=== PATIENT | female | born 2000 | race African-American/Black ===

== ENCOUNTER 2024-07-14 09:26 | Inpatient (IN) | payer BC, MEDICAID ==
[~2024-07-14] VITALS: Ht 162.6 cm; Wt 53.0 kg
[2024-07-14 10:07] LABS: Basophils # (auto) 0 10 ^3/uL (0-0.2); Basophils % (auto) 0.1 % (0.0-2.0); Eosinophils # (auto) 0.1 10 ^3/uL (0-0.8); Eosinophils % (auto) 0.5 % (0.0-7.0); Hematocrit 44.4 % (36.0-46.0); Hemoglobin 14.2 g/dL (12.2-16.2); Lymphocytes # (auto) 1.8 10 ^3/uL (0.4-5.4); Lymphocytes % (auto) 12.1 % (10.0-50.0); Mean Corpuscular Hemoglobin 29.5 pg (28.0-32.0); Mean Corpuscular Volume 92.1 fL (80.0-100.0); Monocytes # (auto) 0.9 10 ^3/uL (0-1.3); Monocytes % (auto) 6.3 % (0.0-12.0); Neutrophils # (auto) 12.1 10 ^3/uL (1.6-8.6); Platelet Count (auto) 237 10^3/uL (140-450); Red Blood Cells 4.82 10^6/uL (4.0-5.20); Red Cell Distribution Width 13.6 % (11.8-14.3)
[2024-07-14 10:30] LABS: Potassium 4.4 mmol/L (3.5-5.1); Sodium 138 mmol/L (136-145)
[2024-07-14 10:31] LABS: Anion Gap 7 (5-15); Calcium 9.8 mg/dL (8.7-10.4); Carbon Dioxide 24 mmol/L (20-31)
[2024-07-14 10:36] LABS: BUN/Creatinine Ratio 8.7 (10.0-20.0); Glucose 97 mg/dL (74-106)
[2024-07-14 10:39] LABS: Blood Urea Nitrogen 8 mg/dL (9-23); Chloride 107 mmol/L (98-107)
[2024-07-14 11:13] LABS: Urine Bacteria FEW /hpf (None Seen); Urine Blood 3+ /uL (Negative); Urine Clarity Clear (Clear); Urine Color Light-Yellow (Yellow); Urine Protein, UAD Negative (Negative); Urine Squamous Epithelial Cell MOD /hpf (<5); Urine Urobilinogen Normal (Negative); Urine WBC 2 /hpf (0 - 5)
[2024-07-14 11:29] LABS: Lipase 26 U/L (12-53)
[2024-07-14 12:50] VITALS: PULSE 115; RESP 16; O2SAT 99
[2024-07-14] MEDS: KETOROLAC TROMETH 30 MG/ML 1ML VIAL IM ONE (12:54)
[2024-07-14] MEDS: ONDANSETRON HCL 4 MG/2 ML VIAL IM ONE (12:54)
[2024-07-14] MEDS: cefTRIAXone W LIDOCAINE 1 GM IM IM ONE (12:57)
--- NOTE | 2024-07-14 13:01 | ED.PDOC ---
GI ASSESSMENT HPI Comments 23 y.o female presents to the ED for a chief complaint of right sided abdominal pain associated with right back/flank pain associated with dizziness and nausea that started one week ago. Patient describes pain as sharp, constant, and worse today with no modifying factors. Patient reports history of kidney stones with similar pain. She denies any fever, chills, dysuria, diarrhea, constipation. Patient is currently on her menstrual cycle. 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 History Family History Family History: Reviewed,noncontributory to illness Social History Smoker: Non-Smoker Alcohol: Denies ETOH Use Drugs: Denies Drug Use Lives In: Home Constitutional: denies: chills, diaphoresis, fatigue, fever, malaise, sweats, weakness, others EENTM: denies: blurred vision, double vision, ear bleeding, ear discharge, ear drainage, ear pain, ear ringing, eye pain, eye redness, hearing loss, mouth pain, mouth swelling, nasal discharge, nose bleeding, nose congestion, nose pain, photophobia, tearing, throat pain, throat swelling, voice changes, others Respiratory: denies: cough, hemoptysis, orthopnea, SOB at rest, shortness of breath, SOB with excertion, stridor, wheezing, others Cardiovascular: denies: chest pain, dizzy spells, diaphoresis, Dyspnea on exertion, edema, irregular heart beat, left arm pain, lightheadedness, palpitations, PND, syncope, others Gastrointestinal: reports: abdominal pain, nausea, vomiting; denies: abdomen distended, blood streaked bowels, constipated, diarrhea, dysphagia, difficulty swallowing, hematemesis, melena, poor appetite, poor fluid intake, rectal bleeding, rectal pain, others Genitourinary: reports: flank pain; denies: abnormal vagina bleeding, burning, dyspareunia, dysuria, frequency, hematuria, incontinence, pain, , vagina discharge, urgency, others Neurological: denies: dizziness, fainting, headache, left sided numbness, left sided weakness, numbness, paresthesia, pre-existing deficit, right sided numbness, right sided weakness, seizure, speech problems, tingling, tremors, weakness, others Musculoskeletal: reports: back pain; denies: gout, joint pain, joint swelling, muscle pain, muscle stiffness, neck pain, others Integumetry: denies: bruises, change in color, change in hair/nails, dryness, laceration, lesions, lumps, rash, wounds, others Allergic/Immunocompromised: denies: Difficulty Healing, Frequent Infections, Hives, Itching, others Hematologic/Lymphatic: denies: anemia, blood clots, easy bleeding, easy bruising, swollen glands, others Endocrine: denies: excessive hunger, excessive sweating, excessive thirst, excessive urination, flushing, intolerance to cold, intolerance to heat, unexplained weight gain, unexplained weight loss, others Psychiatric: denies: anxiety, bipolar disorder, depression, hopeless, panic disorder, schizophrenia, sleepless, suicidal, others All Other Systems: Reviewed and Negative Physical Exam General Appearance: Moderate Distress HEENT: Normal ENT Inspection, Pharynx Normal, TMs Normal Neck: Full Range of Motion, Non-Tender, Normal, Normal Inspection Respiratory: Chest Non-Tender, Lungs Clear, No Accessory Muscle Use, No Respiratory Distress, Normal Breath Sounds Cardiovascular: No Edema, No JVD, No Murmur, No Gallop, Normal Peripheral Pulses, Regular Rate/Rhythm Breast Exam: Deferred Gastrointestinal: RLQ, RUQ, Tenderness Genitalia: Deferred Pelvic: Deferred Rectal: Deferred Extremities: No calf tenderness, Normal capillary refill, Normal inspection, Normal range of motion, Non-tender, No pedal edema Musculoskeletal : Apperance: Normal Neurologic: Alert, shingler II-XII nml as Tested, No Motor Deficits, Normal Affect, Normal Mood, No Sensory Deficits Cerebellar Function: Normal Reflexes: Normal Skin: Dry, Normal Color, Warm Lymphatic: No Adenopathy Was a procedure done? Was a procedure done?: No GI differential Dx Differential Diagnosis: Esophagitis, Gastroenteritis, Inflammatory BD, UTI, Dehydration, Viral, Kidney Stone X-Ray, Labs, Meds, VS Vital Signs Date Time Temp Pulse Resp B/P (MAP) Pulse Ox O2 Delivery O2 Flow Rate FiO2 07/14/24 12:50 115 16 127/109 (115) 99 07/14/24 12:50 115 16 99 Room Air* 0 21 07/14/24 10:34 98.5 88 98 112/70 (84) 98 98.5 07/14/24 09:42 98.7 81 18 106/55 (72) 96 Lab Test 07/14/24 09:53 07/14/24 08:30 Range/Units White Blood Count 15.0 H 4.4-10.8 10^3/uL Red Blood Count 4.82 4.0-5.20 10^6/uL Hemoglobin 14.2 12.2-16.2 g/dL Hematocrit 44.4 36.0-46.0 % Mean Corpuscular Volume 92.1 80.0-100.0 fL Mean Corpuscular Hemoglobin 29.5 28.0-32.0 pg Mean Corpuscular Hemoglobin Concent 32.0 32.0-36.0 g/dL Red Cell Distribution Width 13.6 11.8-14.3 % Platelet Count 237 140-450 10^3/uL Mean Platelet Volume 8.7 6.9-10.8 fL Neutrophils (%) (Auto) 81.0 H 37.0-80.0 % Lymphocytes (%) (Auto) 12.1 10.0-50.0 % Monocytes (%) (Auto) 6.3 0.0-12.0 % Eosinophils (%) (Auto) 0.5 0.0-7.0 % Basophils (%) (Auto) 0.1 0.0-2.0 % Neutrophils # (Auto) 12.1 H 1.6-8.6 10 ^3/uL Lymphocytes # (Auto) 1.8 0.4-5.4 10 ^3/uL Monocytes # (Auto) 0.9 0-1.3 10 ^3/uL Eosinophils # (Auto) 0.1 0-0.8 10 ^3/uL Basophils # (Auto) 0 0-0.2 10 ^3/uL Nucleated Red Blood Cells 0.0 % Sodium Level 138 136-145 mmol/L Potassium Level 4.4 3.5-5.1 mmol/L Chloride Level 107 98-107 mmol/L Carbon Dioxide Level 24 20-31 mmol/L Anion Gap 7 5-15 Blood Urea Nitrogen 8 L 9-23 mg/dL Creatinine 0.92 0.550-1.02 mg/dL Glomerular Filtration Rate Calc 90 >90 mL/min BUN/Creatinine Ratio 8.7 L 10.0-20.0 Serum Glucose 97 74-106 mg/dL Calcium Level 9.8 8.7-10.4 mg/dL Lipase 26 12-53 U/L Urine Color Light-yellow Yellow Urine Clarity Clear Clear Urine pH 6.0 5.0-9.0 Urine Specific [place] 1.020 1.001-1.035 Urine Protein Negative Negative Urine Ketones Negative Negative Urine Blood 3+ H Negative /uL Urine Nitrite Negative Negative Urine Bilirubin Negative Negative Urine Urobilinogen Normal Negative mg/dL Urine Leukocyte Esterase Negative Negative /uL Urine RBC 6 0 - 4 /hpf Urine WBC 2 0 - 5 /hpf Urine Squamous Epithelial Cells Mod <5 /hpf Urine Bacteria Few H None Seen /hpf Urine Glucose Normal Normal mg/dL Urine Test Negative Negative Current Medications Medications (Trade) Dose Ordered Sig/Pearl Route Start Time Stop Time Status Last Admin Ondansetron HCl (Zofran) 4 mg ONCE ONCE IM 07/14/24 12:45 07/14/24 12:47 DC 07/14/24 12:54 Ketorolac Tromethamine (Toradol Injection) 30 mg ONCE ONCE IM 07/14/24 12:45 07/14/24 12:47 DC 07/14/24 12:54 Ceftriaxone Sodium (Rocephin W Lidocaine IM) 1 gm ONCE ONCE IM 07/14/24 12:45 07/14/24 12:47 DC 07/14/24 12:57 X-Ray, Labs, Meds, VS Comment CT abdomen and pelvis: IMPRESSION: 1. Diffuse abnormality of the bowel. Small bowel is distended with fecalization suggesting chronic obstruction. Diffuse wall thickening of the colon. Consider infectious and inflammatory processes. Clinical correlation and continued follow-up is recommended. Consider further evaluation with intravenous and oral contrast. 2. Contracted gallbladder with sludge or stones. Atrophic or fatty infiltrated pancreas. Punctate nonobstructive left renal calculus. Patient will be admitted for possible UTI due to kidney stone versus colonic obstruction of the small bowel with possible infection Patient will be admitted for a retractable abdominal pain Recommend GI consult Patient be started on Flagyl Time of 1ST Reevaluation: 13:00 Reevaluation 1ST: Unchanged Consultation: Other Patient Education/Counseling: Diagnosis, Treatment, Prognosis Family Education/Counseling: No Family Present Departure 1 Departure Time of Disposition: 13:36 Impression: Primary Impression: Urinary tract infection Qualified Codes: N30.01 - Acute cystitis with hematuria Additional Impressions: Intractable abdominal pain Chronic pseudo-obstruction of small intestine Disposition: ADMITTED INPATIENT Condition: Stable Discharged With: Self Critical Care Note Critical Care Time?: No Stability Stability form required: No I personally scribed for RYAN GORE [facility] on 07/14/24 at 13:01. Electronically submitted by Chiara Demarco ([facility]). RYAN GORE Jul 14, 2024 13:01
--- NOTE | 2024-07-14 13:26 | DVH ---
Exam: CT CT AB PEL WO CON-NO ORAL OR IV History: ABD PAIN Comparison Study: None Technique: Multidetector spiral CT of the abdomen and pelvis was performed from lung bases to pubic symphysis. Imaging was performed without IV contrast. Axial, coronal and sagittal multiplanar reform ats were obtained from the axial data set by the technologist. Radiation dose : Abdomen/Pelvis: CTDIvol 5 mGy, DLP 269 mGy*cm. Findings: Evaluation of solid organs is limited due to lack of intravenous contrast use. Lung Bases: No acute or significant lung base finding. Normal heart size. No pleural or pericardial effusion. Liver: The liver is normal in size. No focal lesions. Gallbladder and biliary Tree: Contracted with radiodense material, either sludge or stones. Spleen: Unremarkable Pancreas: Atrophic or fatty infiltrated. Adrenal Glands: Unremarkable Kidneys: Punctate left renal calculus. No hydronephrosis. Bladder: Grossly unremarkable for degree of distention. Bowel: The stomach is grossly normal in appearance. There is dilation of small bowel loops with fecal ization. There is diffuse wall thickening of the colon. The appendix is not visualized; however, no secondary findings of acute appendicitis identified. Ascites: Small amount of free fluid in the pelvis is likely physiologic. Lymphadenopathy: No mesenteric, retroperitoneal or periportal lymphadenopathy. Abdominal wall and Mesentery: Unremarkable. Vasculature: The visualized abdominal aorta is normal in size and caliber. Evaluation of abdominal a nd pelvic vessels is limited due to lack of intravenous contrast. Pelvic Organs: Unremarkable Musculoskeletal: No aggressive focal bony lesions, acute fractures or dislocation. IMPRESSION: 1. Diffuse abnormality of the bowel. Small bowel is distended with fecalization suggesting chronic ob struction. Diffuse wall thickening of the colon. Consider infectious and inflammatory processes. Cl inical correlation and continued follow-up is recommended. Consider further evaluation with intraven ous and oral contrast. 2. Contracted gallbladder with sludge or stones. Atrophic or fatty infiltrated pancreas. Punctate no nobstructive left renal calculus. Radiation optimization: All CT scans at this facility use at least one of these dose optimization tana hniques: Automated exposure control mA and/or kV adjustment per patient size (includes targeted exams where dose is matched to clinical indication) or iterative reconstruction. HS:Y
[2024-07-14] MEDS: metroNIDAZOLE 500MG/100ML 100 ML IV ONE (14:54)
[2024-07-14 17:16] VITALS: BP 97/62; PULSE 66; RESP 16; TEMP 98.4; O2SAT 96
[2024-07-14] MEDS ORDERED: cefTRIAXone 1GM/50ML D5W 50 ML IV ONE (23:45)
--- NOTE | 2024-07-14 23:51 | DVH ---
EXAM: XY CHEST PORTABLE CLINICAL HISTORY: leukocytosis TECHNIQUE: Single AP view of the chest WID: COMPARISON: None FINDINGS: Lines and tubes: None Chest: The heart size and pulmonary vasculature is within normal limits. No pleural effusion, pneumothorax, or consolidation. The osseous structures are grossly intact. IMPRESSION: No acute cardiopulmonary abnormality.
[2024-07-15] MEDS: LACTULOSE 20Gm/30ML SOLN PO ONE (00:15)
[2024-07-15] MEDS: traMADol HCL 50 MG TAB PO ONE (00:15)
[2024-07-15] MEDS: ONDANSETRON HCL 4 MG/2 ML VIAL IV PRN (00:19)
[2024-07-15] MEDS: BISACODYL 5 MG EC TAB PO SCH (00:23)
[2024-07-15] MEDS: SODIUM CHLORIDE 0.9% 1,000 ML IV ONE (00:24)
[2024-07-15] MEDS: metroNIDAZOLE 500MG/100ML 100 ML IV ONE (00:24)
--- NOTE | 2024-07-15 00:25 | DVH ---
INDICATION: RUQ tenderness TECHNIQUE: Multiple real-time sonographic images were obtained of the right upper quadrant. COMPARISON: None FINDINGS: The liver demonstrates homogeneous echotexture without focal mass lesions. The liver measu res 16.1 cm. There is no intrahepatic or extrahepatic ductal dilatation. The common duct measures 0.4 cm. No gallstones. Small amount of sludge is present. The gallbladder wall measures 0.2 cm and is withi n normal limits. The right kidney measures 9.2 cm. The right kidney is normal in contour, size, and shape. The echog enicity is normal. There is no hydronephrosis. The pancreas is not well visualized due to overlying bowel gas. IMPRESSION: 1. Unremarkable right upper quadrant sonogram.
--- NOTE | 2024-07-15 00:44 | DVHHPRES ---
History of Present Illness Resident Creating Document: ZACK DELCID RESIDENT History of Present Illness Patient is a 23-year-old female with past medical history of cystic fibrosis, GERD, nephrolithiasis, who came in due to intractable abdominal pain. According to the patient, last night on 07/14/2024 she was watching TV when she noticed an abrupt onset of abdominal pain prior to which she had 1 slice of pizza. Patient describes the pain as sharp, 9/10 in intensity, intermittent in nature without any exacerbating or relieving factors. Pain is localized to midepigastric-right subcostal area. Pain was accompanied with nausea and 2 episodes of vomit, vomitus containing food particles. Per patient, she experienced similar abdominal pain in the past when she was diagnosed with kidney stones. Review of systems, patient continues to complain of nausea, abdominal pain. Home medication: Trikafta, Creon ([id number]), omeprazole, vitamin- D Last menstrual period: 07/10/2024 Past hospitalization: Denies Not sexually active Past Medical History Cystic fibrosis, GERD, nephrolithiasis Past Surgical History Nasal polyp removal, abdominal scar removal/reduction surgery Smoke: No ALCOHOL: rare Drugs: None Lives: with Family Review of Systems Constitutional: No: Fever, Chills, Sweats, Weakness, Malaise, Other Eyes: No: Pain, Vision change, Conjunctivae inflammation, Eyelid inflammation, Other, Redness ENT: No: Ear pain, Ear discharge, Nose pain, Nose discharge, Nose congestion, Mouth pain, Mouth swelling, Throat pain, Throat swelling, Other Respiratory: No: Cough, Dry, Shortness of breath, SOB with excertion, Wheezing, Hemoptysis, Pleuritic Pain, Sputum, Wheezing, Other Cardiovascular: No: Chest Pain, Palpitations, Orthopnea, Paroxysmal Noc. Dyspnea, Edema, Lt Headedness, Other Gastrointestinal: Nausea, Vomiting, Abdominal Pain, Constipation; No: Diarrhea, Melena, Hematochezia, Other Genitourinary: No Dysuria, No Frequency, No Incontinence, No Hematuria, No Retention, No Other Musculoskeletal: No: other, neck pain, shoulder pain, arm pain, back pain, hand pain, leg pain, foot pain Skin: No: Rash, Lesions, Jaundice, Bruising, Other Neurological: No: Weakness, Numbness, Incoordination, Change in speech, Confusion, Seizures, Other Allergies: Coded Allergies: NO KNOWN ALLERGIES (Unverified , 07/14/24) Medications Current Medications Medications Dose Ordered Sig/Pearl Route Start Time Stop Time Status Last Admin Dose Admin Ondansetron HCl 4 mg Q8HPRN PRN IV 07/14/24 23:30 07/15/24 00:19 4 MG Bisacodyl 10 mg BID PO 07/14/24 23:30 07/15/24 00:23 10 MG Ceftriaxone Sodium 50 ml @ 100 mls/hr DAILY@1300 IV 07/15/24 13:00 Metronidazole 100 ml @ 100 mls/hr Q8HR IV 07/15/24 06:00 Exam Vital Signs Vital Signs Date Time Temp Pulse Resp B/P (MAP) Pulse Ox O2 Delivery O2 Flow Rate FiO2 07/14/24 17:16 98.4 66 16 97/62 (74) 96 98.4 07/14/24 12:50 Room Air* 0 21 General Appearance: Alert, Oriented X3, Cooperative, mild distress HEENT: Atraumatic, PERRLA, EOMI, Mucous membr. moist/pink Respiratory: Clear to auscultation, Normal air movement Cardiovascular: Regular rate, Normal S1, Normal S2 Abdominal: Normal bowel sounds, Other (Right upper quadrant tenderness to palpation and guarding. Right CVA tenderness to palpation.) Extremities: No clubbing, No cyanosis, Normal pulses Skin: No rashes, No breakdown, No significant lesion Psych/Mental Status: Mental status NL, Mood NL Labs/Xrays Labs Test 07/14/24 23:50 07/14/24 09:53 07/14/24 08:30 Range/Units Thyroid Stimulating Hormone (TSH) 1.52 0.55-4.78 uIU/mL White Blood Count 15.0 H 4.4-10.8 10^3/uL Red Blood Count 4.82 4.0-5.20 10^6/uL Hemoglobin 14.2 12.2-16.2 g/dL Hematocrit 44.4 36.0-46.0 % Mean Corpuscular Volume 92.1 80.0-100.0 fL Mean Corpuscular Hemoglobin 29.5 28.0-32.0 pg Mean Corpuscular Hemoglobin Concent 32.0 32.0-36.0 g/dL Red Cell Distribution Width 13.6 11.8-14.3 % Platelet Count 237 140-450 10^3/uL Mean Platelet Volume 8.7 6.9-10.8 fL Neutrophils (%) (Auto) 81.0 H 37.0-80.0 % Lymphocytes (%) (Auto) 12.1 10.0-50.0 % Monocytes (%) (Auto) 6.3 0.0-12.0 % Eosinophils (%) (Auto) 0.5 0.0-7.0 % Basophils (%) (Auto) 0.1 0.0-2.0 % Neutrophils # (Auto) 12.1 H 1.6-8.6 10 ^3/uL Lymphocytes # (Auto) 1.8 0.4-5.4 10 ^3/uL Monocytes # (Auto) 0.9 0-1.3 10 ^3/uL Eosinophils # (Auto) 0.1 0-0.8 10 ^3/uL Basophils # (Auto) 0 0-0.2 10 ^3/uL Nucleated Red Blood Cells 0.0 % Sodium Level 138 136-145 mmol/L Potassium Level 4.4 3.5-5.1 mmol/L Chloride Level 107 98-107 mmol/L Carbon Dioxide Level 24 20-31 mmol/L Anion Gap 7 5-15 Blood Urea Nitrogen 8 L 9-23 mg/dL Creatinine 0.92 0.550-1.02 mg/dL Glomerular Filtration Rate Calc 90 >90 mL/min BUN/Creatinine Ratio 8.7 L 10.0-20.0 Serum Glucose 97 74-106 mg/dL Calcium Level 9.8 8.7-10.4 mg/dL Lipase 26 12-53 U/L Urine Color Light-yellow Yellow Urine Clarity Clear Clear Urine pH 6.0 5.0-9.0 Urine Specific [place] 1.020 1.001-1.035 Urine Protein Negative Negative Urine Ketones Negative Negative Urine Blood 3+ H Negative /uL Urine Nitrite Negative Negative Urine Bilirubin Negative Negative Urine Urobilinogen Normal Negative mg/dL Urine Leukocyte Esterase Negative Negative /uL Urine RBC 6 0 - 4 /hpf Urine WBC 2 0 - 5 /hpf Urine Squamous Epithelial Cells Mod <5 /hpf Urine Bacteria Few H None Seen /hpf Urine Glucose Normal Normal mg/dL Urine Test Negative Negative Assessment/Plan Assessment/Plan Acute intractable abdominal pain Ruled out acute cholecystitis Acute constipation likely; rule out acute gastritis - CT abdomen pelvis: Diffuse abnormality of the bowel. Small bowel is diste nded with fecalization suggesting chronic obstruction. Diffuse wall thickening of the colon. Consider infectious and inflammatory processes. Contracted gallbladder with sludge or stones. Atrophic or fatty infiltrated pancreas. Punctate nonobstructive left renal calculus. - abdominal ultrasound: Unremarkable right upper quadrant sonogram - IV ceftriaxone, IV metronidazole - IV NS at 100 cc/hour - Dulcolax 10 mg p.o. b.i.d. - lactulose 60 mL p.o. once - IV ondansetron 4 mg q.8 hour as needed for nausea and vomiting - tramadol p.o. 50 mg once History of cystic fibrosis - monitor GERD - IV Protonix 40 mg once Goals of care: Full code, discussed for >16 minutes on 07/15/24 Plan discussed with patient Plan discussed with Dr. Arthur Plan discussed with: Patient, Other (RN) My Orders Orders - ZACK DELCID RESIDENT Procedure Category Date Status Time Admit ADMIT 07/14/24 Transmitted 23:23 Notify Md Of Changes GILSON 07/14/24 In Process From Base 23:23 Abdomen Limited US 07/14/24 Resulted 23:23 Chest Portable XY 07/14/24 Resulted 23:23 Rapid Influenza A&B LAB 07/14/24 Logged 23:23 Covid19 Antigen [facility] 07/14/24 Logged Ondansetron Hcl PHA 07/14/24 In Process (Zofran) 23:30 Bisacodyl Ec Tablet PHA 07/14/24 In Process (Dulcolax Ec Tablet) 23:30 Ceftriaxone 1gm/50ml PHA 07/15/24 In Process D5w (Rocephin) 13:00 Metronidazole PHA 07/15/24 In Process 500mg/100ml (Flagyl 06:00 Hepatic Panel LAB 07/14/24 In Process 23:25 Drug Screen LAB 07/14/24 Logged 23:25 Blood Culture LALITO 07/14/24 In Process 23:25 Mrsa Screen LALITO 07/14/24 Logged 23:25 Alejandra; Direct LAB 07/14/24 In Process 23:29 Metronidazole PHA 07/14/24 In Process 500mg/100ml (Flagyl 23:45 Sodium Chloride 0.9% PHA 07/14/24 In Process 23:45 Date of Service: Jul 14, 2024 Billing Provider: LUIS ANGEL ARTHUR MD Common Visit Codes: [id number] INP/OBS CARE (HIGH) ZACK DELCID RESIDENT Jul 15, 2024 00:44 LUIS ANGEL ARTHUR MD Jul 15, 2024 09:41
[2024-07-15 01:47] LABS: Albumin 4.8 g/dL (3.2-4.8); Bilirubin, Direct 0.2 mg/dL (<0.3); Bilirubin, Total 0.6 mg/dL (0.2-1.0)
[2024-07-15] MEDS: PANTOPRAZOLE 40 MG/10 ML VIAL INJ IV ONE (02:05)
[2024-07-15] MEDS: metroNIDAZOLE 500MG/100ML 100 ML IV SCH (05:42)
[2024-07-15 07:36] LABS: COVID19 ANTIGEN SOFIA FIA NEGATIVE (NEGATIVE)
[2024-07-15 07:42] LABS: Rapid Influenza A Positive (Negative); Rapid Influenza B Positive (Negative)
[2024-07-15 07:54] VITALS: PULSE 79; RESP 18; O2SAT 98
[2024-07-15 08:07] LABS: Alanine Aminotransferase 11 U/L (7-40); Albumin 4.1 g/dL (3.2-4.8); Alkaline Phosphatase 49 U/L (46-116); Anion Gap 7 (5-15); BUN/Creatinine Ratio 10.1 (10.0-20.0); Blood Urea Nitrogen 10 mg/dL (9-23); Calcium 9.4 mg/dL (8.7-10.4); Carbon Dioxide 23 mmol/L (20-31); Potassium 4.5 mmol/L (3.5-5.1); Sodium 140 mmol/L (136-145)
[2024-07-15 08:08] LABS: Bilirubin, Total 0.6 mg/dL (0.2-1.0); Total Protein 6.8 g/dL (5.7-8.2)
[2024-07-15 08:09] LABS: Aspartate Aminotransferase 12 U/L (13-40); Basophils # (auto) 0 10 ^3/uL (0-0.2); Basophils % (auto) 0.2 % (0.0-2.0); Chloride 110 mmol/L (98-107); Eosinophils # (auto) 0 10 ^3/uL (0-0.8); Eosinophils % (auto) 0.4 % (0.0-7.0); Glucose 106 mg/dL (74-106); Hematocrit 39.8 % (36.0-46.0); Hemoglobin 13.2 g/dL (12.2-16.2); Lymphocytes # (auto) 1.8 10 ^3/uL (0.4-5.4); Lymphocytes % (auto) 15.4 % (10.0-50.0); Mean Corpuscular Hemoglobin 30.3 pg (28.0-32.0); Mean Corpuscular Hgb Conc. 33.2 g/dL (32.0-36.0); Mean Corpuscular Volume 91.1 fL (80.0-100.0); Monocytes % (auto) 8.8 % (0.0-12.0); Neutrophils # (auto) 8.6 10 ^3/uL (1.6-8.6); Neutrophils % (auto) 75.2 % (37.0-80.0); Platelet Count (auto) 221 10^3/uL (140-450); Red Blood Cells 4.37 10^6/uL (4.0-5.20); Red Cell Distribution Width 13.4 % (11.8-14.3); White Blood Cell 11.4 10^3/uL (4.4-10.8)
[2024-07-15] MEDS: POLYETHYLENE GLYCOL 17 GM PWDR PO ONE (08:53)
[2024-07-15] MEDS: cefTRIAXone 1GM/50ML D5W 50 ML IV SCH (13:08)
--- NOTE | 2024-07-15 13:14 | DVHPNRES ---
Progress Note Date Seen: Jul 15, 2024 Resident Creating Document: CINDY FOURNIER RESIDENT Has the PT tested + for MRSA If YES, has PT been informed?: No Medical Necessity Reason Pt with a Central, PICC or Fol: No Subjective Review of Systems Patient is a 23-year-old female with past medical history of cystic fibrosis, GERD, nephrolithiasis, who came in due to intractable abdominal pain. According to the patient, last night on 07/14/2024 she was watching TV when she noticed an abrupt onset of abdominal pain prior to which she had 1 slice of pizza. Patient describes the pain as sharp, 9/10 in intensity, intermittent in nature without any exacerbating or relieving factors. Pain is localized to midepigastric-right subcostal area. Pain was accompanied with nausea and 2 episodes of vomit, vomitus containing food particles. Per patient, she experienced similar abdominal pain in the past when she was diagnosed with kidney stones. Review of systems, patient continues to complain of nausea, abdominal pain. Home medication: Trikafta, Creon ([id number]), omeprazole, vitamin- D Last menstrual period: 07/10/2024 Past hospitalization: Denies Not sexually active Past Medical History Cystic fibrosis, GERD, nephrolithiasis Past Surgical History Nasal polyp removal, abdominal scar removal/reduction surgery Smoke: No ALCOHOL: rare Drugs: None Lives: with Family Objective vital signs Vital Sign Date Time Temp Pulse Resp B/P (MAP) Pulse Ox O2 Delivery O2 Flow Rate FiO2 07/15/24 12:11 97.8 64 17 109/72 (84) 96 97.8 07/15/24 07:54 Room Air* 0 21 Total Intake and Output 07/14/24 07/14/24 07/15/24 15:00 23:00 07:00 Intake Total 100 ml Balance 100 ml medications Current Medications Medications Dose Ordered Sig/Pearl Route Start Time Stop Time Status Last Admin Dose Admin Ondansetron HCl 4 mg Q8HPRN PRN IV 07/14/24 23:30 07/15/24 00:19 4 MG Bisacodyl 10 mg BID PO 07/14/24 23:30 07/15/24 10:34 10 MG Ceftriaxone Sodium 50 ml @ 100 mls/hr DAILY@1300 IV 07/15/24 13:00 07/15/24 13:08 100 MLS/HR Metronidazole 100 ml @ 100 mls/hr Q8HR IV 07/15/24 06:00 07/15/24 05:42 100 MLS/HR Pantoprazole Sodium 40 mg DAILY IV 07/16/24 10:00 Examination General Appearance: Alert, Oriented X3, Cooperative, mild distress HEENT: Atraumatic, PERRLA, EOMI, Mucous membr. moist/pink Respiratory: Clear to auscultation, Normal air movement Cardiovascular: Regular rate, Normal S1, Normal S2 Abdominal: Right upper and lower quadrant tenderness to palpation and guarding. Extremities: No clubbing, No cyanosis, Normal pulses Skin: No rashes, No breakdown, No significant lesion Psych/Mental Status: Mental status NL, Mood NL laboratory and microbiology Laboratory Tests 07/15/24 07:27 Test 07/15/24 07:27 Range/Units Serum Glucose 106 74-106 mg/dL Problem List/Assessment/Plan Problem List/Assessment/Plan #Influenza positive #Acute intractable abdominal pain #Chronic pancreatitis? #Constipation #Acute gastritis #History of cystic fibrosis #GERD - CT abdomen pelvis: Diffuse abnormality of the bowel. Small bowel is distended with fecalization suggesting chronic obstruction. Diffuse wall thickening of the colon. Consider infectious and inflammatory processes. Contracted gallbladder with sludge or stones. Atrophic or fatty infiltrated pancreas. Punctate nonobstructive left renal calculus. - abdominal ultrasound: Unremarkable right upper quadrant sonogram - IV ceftriaxone, IV metronidazole - IV NS at 75 cc/hour - Dulcolax 10 mg p.o. b.i.d. -Miralax daily -oseltamivir - IV ondansetron 4 mg q.8 hour as needed for nausea and vomiting - IV Protonix 40 mg once We will keep the patient in the hospital to evaluate abdominal pain and advance diet due to nausea and vomit Goals of care: Full code, discussed for >16 minutes on 07/15/24 Plan discussed with patient and mother Plan discussed with Dr. Mendez Plan discussed with: Patient, Other (rn) Date of Service: Jul 15, 2024 Billing Provider: HUY MENDEZ MD Common Visit Codes: [id number] INP/OBS CARE(HIGH) CINDY FOURNIER RESIDENT Jul 15, 2024 13:14 HUY MENDEZ MD Jul 15, 2024 16:17
[2024-07-15] MEDS: SODIUM CHLORIDE 0.9% 1,000 ML IV SCH (13:15)
[2024-07-15 17:28] VITALS: BP 101/68; PULSE 60; RESP 17; TEMP 98.9; O2SAT 100
[2024-07-16] MEDS ORDERED: OSELTAMIVIR 75 MG CAP PO SCH (10:00)
[2024-07-16] MEDS ORDERED: PANTOPRAZOLE 40 MG/10 ML VIAL INJ IV SCH (10:00)
--- NOTE | 2024-07-17 06:43 | DVHDSRES ---
Discharge Summary Date of Admission Resident Creating Document: CINDY FOURNIER RESIDENT Jul 14, 2024 at 23:23 Date of Discharge: Jul 15, 2024 Admitting Diagnosis abdominal pain Labs/Diagnostic Data: Laboratory Results Test 07/15/24 07:27 07/15/24 06:50 07/14/24 23:50 07/14/24 09:53 White Blood Count 11.4 10^3/uL (4.4-10.8) Red Blood Count 4.37 10^6/uL (4.0-5.20) Hemoglobin 13.2 g/dL (12.2-16.2) Hematocrit 39.8 % (36.0-46.0) Mean Corpuscular Volume 91.1 fL (80.0-100.0) Mean Corpuscular Hemoglobin 30.3 pg (28.0-32.0) Mean Corpuscular Hemoglobin Concent 33.2 g/dL (32.0-36.0) Red Cell Distribution Width 13.4 % (11.8-14.3) Platelet Count 221 10^3/uL (140-450) Mean Platelet Volume 9.1 fL (6.9-10.8) Neutrophils (%) (Auto) 75.2 % (37.0-80.0) Lymphocytes (%) (Auto) 15.4 % (10.0-50.0) Monocytes (%) (Auto) 8.8 % (0.0-12.0) Eosinophils (%) (Auto) 0.4 % (0.0-7.0) Basophils (%) (Auto) 0.2 % (0.0-2.0) Neutrophils # (Auto) 8.6 10 ^3/uL (1.6-8.6) Lymphocytes # (Auto) 1.8 10 ^3/uL (0.4-5.4) Monocytes # (Auto) 1.0 10 ^3/uL (0-1.3) Eosinophils # (Auto) 0 10 ^3/uL (0-0.8) Basophils # (Auto) 0 10 ^3/uL (0-0.2) Nucleated Red Blood Cells 0.0 % Sodium Level 140 mmol/L (136-145) Potassium Level 4.5 mmol/L (3.5-5.1) Chloride Level 110 mmol/L (98-107) Carbon Dioxide Level 23 mmol/L (20-31) Anion Gap 7 (5-15) Blood Urea Nitrogen 10 mg/dL (9-23) Creatinine 0.99 mg/dL (0.550-1.02) Glomerular Filtration Rate Calc 83 mL/min (>90) BUN/Creatinine Ratio 10.1 (10.0-20.0) Serum Glucose 106 mg/dL (74-106) Calcium Level 9.4 mg/dL (8.7-10.4) Total Bilirubin 0.6 mg/dL (0.2-1.0) Aspartate Amino Transferase (AST) 12 U/L (13-40) Alanine Aminotransferase (ALT) 11 U/L (7-40) Alkaline Phosphatase 49 U/L (46-116) Total Protein 6.8 g/dL (5.7-8.2) Albumin 4.1 g/dL (3.2-4.8) Influenza Type A Antigen Positive (Negative) Influenza Type B Antigen Positive (Negative) SARS-CoV-2 Antigen (Rapid) Negative (NEGATIVE) Direct Bilirubin 0.2 mg/dL (<0.3) Thyroid Stimulating Hormone (TSH) 1.52 uIU/mL (0.55-4.78) Lipase 26 U/L (12-53) Test 07/14/24 08:30 Urine Color Light-yellow (Yellow) Urine Clarity Clear (Clear) Urine pH 6.0 (5.0-9.0) Urine Specific Petroleum 1.020 (1.001-1.035) Urine Protein Negative (Negative) Urine Ketones Negative (Negative) Urine Blood 3+ /uL (Negative) Urine Nitrite Negative (Negative) Urine Bilirubin Negative (Negative) Urine Urobilinogen Normal mg/dL (Negative) Urine Leukocyte Esterase Negative /uL (Negative) Urine RBC 6 /hpf (0 - 4) Urine WBC 2 /hpf (0 - 5) Urine Squamous Epithelial Cells Mod /hpf (<5) Urine Bacteria Few /hpf (None Seen) Urine Glucose Normal mg/dL (Normal) Urine Test Negative (Negative) Other Laboratory Tests 07/15/24 07:27 Brief Hx & Hospital Course: The patient is a 23-year-old female with a past medical history of cystic fibrosis, GERD, nephrolithiasis, and possible chronic pancreatitis who presented with sudden onset of abdominal pain localized to the mid-epigastric and right subcostal area. Pain was associated with nausea and two episodes of vomiting (vomitus containing food particles). She had a similar episode of abdominal pain in the past attributed to kidney stones. Diagnostic imaging included a CT abdomen pelvis showing diffuse bowel wall thickening with constipation, no acute pathology. An abdominal ultrasound was unremarkable for upper quadrant pathology. Lab work was significant for elevated inflammatory markers, During her hospitalization, the patient was started on: IV ceftriaxone and IV metronidazole for presumed infectious or inflammatory bowel conditions. Oseltamivir due to influenza positivity. IV fluids for hydration. Ondansetron for nausea. Supportive medications, including Dulcolax and Miralax, for constipation. Despite counseling on the need for continued evaluation and treatment, the patient decided to leave the hospital Against Medical Advice on July 15, 2024. The patient was advised about the importance of continuing oseltamivir given her influenza positivity and underlying cystic fibrosis. She was also made aware of the risks associated with incomplete evaluation of her chronic abdominal pain and potential obstruction. Case discussed with Dr Mendez Time spent on care 23 min Operations or Procedures Exam: CT CT AB PEL WO CON-NO ORAL OR IV History: ABD PAIN Comparison Study: None Technique: Multidetector spiral CT of the abdomen and pelvis was performed from lung bases to pubic symphysis. Imaging was performed without IV contrast. Axial, coronal and sagittal multiplanar reformats were obtained from the axial data set by the technologist. Radiation dose : Abdomen/Pelvis: CTDIvol 5 mGy, DLP 269 mGy*cm. Findings: Evaluation of solid organs is limited due to lack of intravenous contrast use. Lung Bases: No acute or significant lung base finding. Normal heart size. No pleural or pericardial effusion. Liver: The liver is normal in size. No focal lesions. Gallbladder and biliary Tree: Contracted with radiodense material, either sludge or stones. Spleen: Unremarkable Pancreas: Atrophic or fatty infiltrated. Adrenal Glands: Unremarkable Kidneys: Punctate left renal calculus. No hydronephrosis. Bladder: Grossly unremarkable for degree of distention. Bowel: The stomach is grossly normal in appearance. There is dilation of small bowel loops with fecalization. There is diffuse wall thickening of the colon. The appendix is not visualized; however, no secondary findings of acute appendicitis identified. Ascites: Small amount of free fluid in the pelvis is likely physiologic. Lymphadenopathy: No mesenteric, retroperitoneal or periportal lymphadenopathy. Abdominal wall and Mesentery: Unremarkable. Vasculature: The visualized abdominal aorta is normal in size and caliber. Evaluation of abdominal and pelvic vessels is limited due to lack of intravenous contrast. Pelvic Organs: Unremarkable Musculoskeletal: No aggressive focal bony lesions, acute fractures or dislocation. IMPRESSION: 1. Diffuse abnormality of the bowel. Small bowel is distended with fecalization suggesting chronic obstruction. Diffuse wall thickening of the colon. Consider infectious and inflammatory processes. Clinical correlation and continued follow-up is recommended. Consider further evaluation with intravenous and oral contrast. 2. Contracted gallbladder with sludge or stones. Atrophic or fatty infiltrated pancreas. Punctate nonobstructive left renal calculus. Radiation optimization: All CT scans at this facility use at least one of these dose optimization techniques: Automated exposure control mA and/or kV adjustment per patient size (includes targeted exams where dose is matched to clinical indication) or iterative reconstruction. Condition at Discharge: Poor Final Diagnosis/Problems List #Influenza positive #Acute intractable abdominal pain #Chronic pancreatitis? #Constipation #Acute gastritis #History of cystic fibrosis #GERD Discharge Disposition: AMA Discharge Statement: "Patient was advised to return to the ER or call 911 if any headaches, dizziness, shortness of breath, chest pain, abdominal pain, bleeding, fevers, or worsening of medical condition. Patient was counseled about treatment plan, medications, possible side effects, patientverbalized understanding. All questions were answered to the best of my ability. This discharge took greater then 30 minutes in planning, reviewing documentation, counseling the patient, and discussing with other team members." ASSESSMENT ASSESSMENT Assessment Date of Service: Jul 15, 2024 Billing Provider: HUY MENDEZ MD Common Visit Codes: 81953-FCV/OBS DISCH DAY >30min CINDY FOURNIER RESIDENT Jul 17, 2024 06:43 HUY MENDEZ MD Jul 18, 2024 14:50
== END 2024-07-15 19:44 | disposition left against medical advice (07) | DRG 690 ==
LOC: ER 09:26 → OVERFLOW 23:23
PROVIDERS: ADMIT Student in an Organized Health Care Education/Training Program; ATTEND Student in an Organized Health Care Education/Training Program
DX: N39.0 Urinary tract infection, site not specified (principal); K56.699 Other intestinal obstruction unspecified as to partial versus complete obstruction; K86.1 Other chronic pancreatitis; K29.00 Acute gastritis without bleeding; K21.9 Gastro-esophageal reflux disease without esophagitis; K59.00 Constipation, unspecified; J10.1 Influenza due to other identified influenza virus with other respiratory manifestations; Z20.822 Contact with and (suspected) exposure to COVID-19; Z53.29 Procedure and treatment not carried out because of patient's decision for other reasons; Z87.442 Personal history of urinary calculi
CPT/HCPCS: 36415; 71045; 74176; 76705; 80048; 80053; 80076; 81001; 81025; 83690; 84443; 85025; 86038; 87040; 87081; 87426; 87804; 96365; 96372; G0378; J0696; J1885; J2405; J2470; J3490